=== PATIENT | female | born 2000 | race Two or more races ===

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

== ENCOUNTER 2021-12-03 10:49 | Emergency (ER) | payer MEDICAID ==
[~2021-12-03] VITALS: Ht 157.5 cm; Wt 60.0 kg
[~2021-12-03 10:49] MED LIST: ACET-2708 MT; ONDA4TAB5 MT
[2021-12-03 11:27] VITALS: BP 103/65
== END 2021-12-03 13:02 | disposition left against medical advice (07) ==
LOC: ER 10:49
DX: Z53.21 Procedure and treatment not carried out due to patient leaving prior to being seen by health care provider (principal)